=== PATIENT | male | born 1995 | race Hispanic/Latino ===

== ENCOUNTER 2023-02-25 16:13 | Emergency (ER) | payer OTHER ==
[~2023-02-25] VITALS: Ht 177.8 cm; Wt 113.4 kg
[2023-02-25] MEDS ORDERED: KETOROLAC 30MG VIAL (30MG/ML) ONE (17:13)
[2023-02-25] MEDS ORDERED: KETOROLAC 30MG VIAL (30MG/ML) IM ONE (17:30)
[2023-02-25] MEDS ORDERED: DEXAMETHASONE SOD PHOSPHATE 4 MG/ML 1ML VIAL IM ONE (18:00)
[2023-02-25] MEDS ORDERED: AZIT250T9 PO (18:04)
[2023-02-25] MEDS ORDERED: PRED10TA23 PO (18:04)
[2023-02-25] MEDS ORDERED: LORA10TA7 PO (18:04)
[2023-02-25] MEDS ORDERED: FLUT16H NASAL (18:04)
[2023-02-25 18:12] VITALS: BP 142/93
== END 2023-02-25 18:19 | disposition home or self-care (01) ==
LOC: EDH 16:13
DX: J01.90 Acute sinusitis, unspecified (principal); R51.9 Headache, unspecified
CPT/HCPCS: 99284; 96372 ×2; J1100; J1885

== ENCOUNTER 2023-06-25 04:56 | Emergency (ER) | payer OTHER ==
[~2023-06-25] VITALS: Ht 177.8 cm; Wt 113.4 kg
[~2023-06-25 04:56] MED LIST: AZIT250T9 PO; FLUT16H NASAL; LORA10TA7 PO; PRED10TA23 PO
[2023-06-25] MEDS ORDERED: METOCLOPRAMIDE 10 MG/2 ML VIAL IVP ONE (06:00)
[2023-06-25] MEDS ORDERED: KETOROLAC 30MG VIAL (30MG/ML) IVP ONE (06:00)
[2023-06-25] MEDS ORDERED: DiphenhydrAMINE HCL 50 MG/ML VIAL IV ONE (06:00)
[2023-06-25] MEDS ORDERED: IBUP-1493 PO (07:13)
[2023-06-25 10:38] VITALS: BP 138/86; PULSE 68; RESP 16; O2SAT 97
== END 2023-06-25 11:13 | disposition home or self-care (01) ==
LOC: EDH 04:56
DX: G44.209 Tension-type headache, unspecified, not intractable (principal); G47.33 Obstructive sleep apnea (adult) (pediatric); Z79.899 Other long term (current) drug therapy
CPT/HCPCS: 99285; 96374; 70450; 96375; J1200; J1885; J2765